=== PATIENT | female | born 1945 | race Asian ===

== ENCOUNTER 2016-08-15 10:30 | Emergency (ER) | payer MEDICARE, OTHER ==
[~2016-08-15] VITALS: Ht 160 cm; Wt 54.4 kg
[~2016-08-15 10:30] MED LIST: FERROUS SULFAT325 M2 PO
[2016-08-15 12:51] VITALS: BP 130/64
== END 2016-08-15 12:51 | disposition home or self-care (01) ==
LOC: ED 10:30
DX: S93.601A Unspecified sprain of right foot, initial encounter (principal); X58.XXXA Exposure to other specified factors, initial encounter; Y93.89 Activity, other specified; Y99.8 Other external cause status; Y92.89 Other specified places as the place of occurrence of the external cause

== ENCOUNTER 2020-07-13 10:24 | Inpatient (IN) | payer OTHER, MEDICARE ==
[~2020-07-13] VITALS: Ht 152.4 cm; Wt 44.9 kg
[2020-07-13 13:54] LABS: BASOPHIL % 0.4 % (0.2-1.3); PLATELET COUNT 279 x10^3mcL (179-408)
[2020-07-13 14:12] VITALS: Ht 152.4 cm; Wt 44.9 kg
[2020-07-13 14:21] LABS: rbc morphology (normal/abnorm) ABNORMAL (NORMAL)
[2020-07-13 14:24] LABS: CALCIUM 8.9 mg/dL (8.5-10.1); CARBON DIOXIDE 20.3 mmol/L (21-32); CHLORIDE SERUM 106 mmol/L (98-107); CREATININE SERUM 1.6 mg/dL (0.6-1.0); GLUCOSE SERUM 74 mg/dL (74-106); POTASSIUM SERUM 3.8 mmol/L (3.5-5.1); SODIUM SERUM 140 mmol/L (136-145)
[2020-07-14 01:36] VITALS: BP 172/73
[2020-07-14 05:17] VITALS: BP 143/70
[2020-07-14 07:41] LABS: PLATELET COUNT 293 x10^3mcL (179-408)
[2020-07-14 07:54] LABS: RED CELL DISTRIBUTION WIDTH 17.3 % (12.3-17.7)
[2020-07-14 08:22] VITALS: BP 163/71
[2020-07-14 08:26] LABS: CALCIUM 8.7 mg/dL (8.5-10.1); CARBON DIOXIDE 12.6 mmol/L (21-32); CHLORIDE SERUM 107 mmol/L (98-107); CREATININE SERUM 1.6 mg/dL (0.6-1.0); HDL CHOLESTEROL 36 mg/dL (40-60); MAGNESIUM 1.9 mg/dL (1.8-2.4); POTASSIUM SERUM 3.9 mmol/L (3.5-5.1); SODIUM SERUM 139 mmol/L (136-145)
[2020-07-14 08:28] LABS: CHOLESTEROL 242 mg/dL (<200); CHOLESTEROL/HDL RATIO 6.7; TRIGLYCERIDES 214 mg/dL (<150)
[2020-07-14 08:29] LABS: GLUCOSE SERUM 58 mg/dL (74-106)
[2020-07-14 12:08] VITALS: BP 161/64
[2020-07-14 16:47] VITALS: BP 172/88
[2020-07-14 20:42] VITALS: BP 165/71
[2020-07-15 05:45] VITALS: BP 145/68
[2020-07-15 06:33] LABS: BASOPHIL % 1.3 % (0.2-1.3); PLATELET COUNT 290 x10^3mcL (179-408)
[2020-07-15 07:30] LABS: RED CELL DISTRIBUTION WIDTH 17.1 % (12.3-17.7)
[2020-07-15 07:36] LABS: CALCIUM 8.5 mg/dL (8.5-10.1); CHLORIDE SERUM 107 mmol/L (98-107); CREATININE SERUM 1.7 mg/dL (0.6-1.0); GLUCOSE SERUM 77 mg/dL (74-106); POTASSIUM SERUM 3.7 mmol/L (3.5-5.1); SODIUM SERUM 140 mmol/L (136-145)
[2020-07-15 08:10] LABS: CARBON DIOXIDE 20.9 mmol/L (21-32)
[2020-07-15 08:16] VITALS: BP 163/84
[2020-07-15 12:14] VITALS: BP 125/64
[2020-07-15 16:42] VITALS: BP 99/53
[2020-07-15 20:06] VITALS: BP 116/58
[2020-07-16 05:54] VITALS: BP 117/64
[2020-07-16 08:23] VITALS: BP 136/55
[2020-07-16 11:59] VITALS: BP 136/55
[2020-07-16 12:02] VITALS: BP 129/57
[2020-07-16 18:25] LABS: CARBON DIOXIDE 21.6 mmol/L (21-32); CHLORIDE SERUM 107 mmol/L (98-107); CREATININE SERUM 1.5 mg/dL (0.6-1.0); GLUCOSE SERUM 68 mg/dL (74-106); POTASSIUM SERUM 3.8 mmol/L (3.5-5.1); SODIUM SERUM 138 mmol/L (136-145)
[2020-07-17 14:09] LABS: PLATELET COUNT 245 x10^3mcL (130-400); RED CELL DISTRIBUTION WIDTH 17.2 % (11.5-14.5)
[2020-07-17 14:10] LABS: BAND NEUTROPHIL 1 % (0-10); BASOPHIL 1 % (0-2); MONOCYTE 6 % (0-7); SEGMENTED NEUTROPHILS 76 % (37-75); rbc morphology (normal/abnorm) ABNORMAL (NORMAL)
[2020-07-17 14:11] LABS: ovalocyte/elliptocyte 1+
[2020-07-17 14:12] LABS: PLATELET MORPHOLOGY PLATELETS NORMAL; schistocyte (helmet cell) 1+; target cell (codocyte) 2+
== END 2020-07-16 12:37 | disposition home health service (06) | DRG 194 ==
LOC: ED 10:24 → DU 19:24
PROVIDERS: Emergency Medicine; ADMIT Hospitalist; ATTEND Hospitalist
DX: I11.0 Hypertensive heart disease with heart failure (principal); N17.9 Acute kidney failure, unspecified; E87.2 Acidosis; Z20.822 Contact with and (suspected) exposure to COVID-19; D64.9 Anemia, unspecified; I42.9 Cardiomyopathy, unspecified; I50.23 Acute on chronic systolic (congestive) heart failure; E78.5 Hyperlipidemia, unspecified; Z79.899 Other long term (current) drug therapy
CPT/HCPCS: 83880; 97530-GP; G0378; J1644; J1940